=== PATIENT | female | born 1975 | race Caucasian/White ===

== ENCOUNTER → 2022-04-26 | Outpatient (CLI) | payer OTHER ==
[~2022-04-26] MED LIST: GADOBENATE DIMEGLUMINE 1 ML IV ONE; PROMETHAZINE HC25 M1 PO; TYLENOL WITH C1 EACH PO
== END ==
LOC: MRI 07:48
PROVIDERS: ATTEND Internal Medicine Gastroenterology
DX: R16.0 Hepatomegaly, not elsewhere classified (principal)
CPT/HCPCS: 74183

== ENCOUNTER → 2023-03-13 | Day surgery (SDC) | payer OTHER ==
[~2023-03-13] MED LIST changes: -GADOBENATE DIMEGLUMINE 1 ML IV ONE; +LACTATED RINGER'S 1,000 ML ONE; +LIDOCAINE HCL 2% LOCAL INJ 5 ML SDV VIAL INJ ONE; +MIDAZOLAM HCL 2 MG/2 ML VIAL ONE; +PROPOFOL IV EMULSION 10 MG/ML 20 ML VIAL ONE
[2023-03-13 13:00] VITALS: BP 104/65; PULSE 74; RESP 16; O2SAT 95
== END | disposition home or self-care (01) ==
LOC: OR 10:24
PROVIDERS: ATTEND Internal Medicine Gastroenterology
DX: Z12.11 Encounter for screening for malignant neoplasm of colon (principal); K64.8 Other hemorrhoids; K62.89 Other specified diseases of anus and rectum; K59.09 Other constipation; Z71.3 Dietary counseling and surveillance; Z91.040 Latex allergy status; Z68.26 Body mass index [BMI] 26.0-26.9, adult; Z87.19 Personal history of other diseases of the digestive system; Z86.16 Personal history of COVID-19; Z80.0 Family history of malignant neoplasm of digestive organs
CPT/HCPCS: 45378; 81025; J7121; J2001; J2250